=== PATIENT | male | born 1955 | race Caucasian/White ===

== ENCOUNTER 2021-12-14 14:27 | Emergency (ER) | payer OTHER ==
[2021-12-14 15:29] LABS: HEMOGLOBIN 15.9 gm/dl (14.0-17.5); RED BLOOD COUNT 4.75 M/UL (4.20-5.50); WHITE BLOOD COUNT 13.3 K/UL (4.5-11.0)
[2021-12-14 15:54] LABS: BUN/CREATININE RATIO 21 (0-10)
[2021-12-15 10:07] LABS: HEMOGLOBIN 16.4 gm/dl (14.0-17.5); RED BLOOD COUNT 4.92 M/UL (4.20-5.50); WHITE BLOOD COUNT 12.7 K/UL (4.5-11.0)
[2021-12-15 10:27] LABS: BUN/CREATININE RATIO 19 (0-10)
[2021-12-15] MEDS ORDERED: GABAPENTIN300 MG PO (19:34)
[2021-12-15] MEDS ORDERED: CANDESARTAN CIL32 MG PO (19:35)
[2021-12-15] MEDS ORDERED: CELECOXIB200 MG PO (19:35)
[2021-12-15] MEDS ORDERED: LANSOPRAZOLE30 MG PO (19:35)
[2021-12-15] MEDS ORDERED: ESCITALOPRAM OX20 MG PO (19:36)
[2021-12-15] MEDS ORDERED: ATORVASTATIN CA20 MG PO (19:36)
[2021-12-15] MEDS ORDERED: FLUTICASONE-SA1 EAC5 INH (19:37)
[2021-12-15] MEDS ORDERED: ALPRAZOLAM1 MG PO (19:37)
[2021-12-15] MEDS ORDERED: METOPROLOL SUC100 MG PO (19:38)
[2021-12-15] MEDS ORDERED: AMLODIPINE BESYL5 MG PO (19:39)
[2021-12-15] MEDS ORDERED: HYGROTON TAB 2525 MG PO (19:59)
[2021-12-15] MEDS ORDERED: IMODIUM CAP 2 MG2 MG PO (20:34)
[2021-12-16 06:04] LABS: HEMOGLOBIN 15.6 gm/dl (14.0-17.5); RED BLOOD COUNT 4.71 M/UL (4.20-5.50); WHITE BLOOD COUNT 12.2 K/UL (4.5-11.0)
[2021-12-16 06:24] LABS: BUN/CREATININE RATIO 15 (0-10)
[2021-12-17 04:42] LABS: HEMOGLOBIN 15.2 gm/dl (14.0-17.5); RED BLOOD COUNT 4.64 M/UL (4.20-5.50); WHITE BLOOD COUNT 12.2 K/UL (4.5-11.0)
[2021-12-17 05:04] LABS: BUN/CREATININE RATIO 18 (0-10)
== END 2021-12-17 15:57 | disposition other institution (70) ==
LOC: ER1 14:27
PROVIDERS: Physician Assistant
DX: I65.23 Occlusion and stenosis of bilateral carotid arteries (principal); R26.2 Difficulty in walking, not elsewhere classified; I63.9 Cerebral infarction, unspecified; F17.200 Nicotine dependence, unspecified, uncomplicated; I25.10 Atherosclerotic heart disease of native coronary artery without angina pectoris; R51.9 Headache, unspecified; R29.700 NIHSS score 0; Z20.822 Contact with and (suspected) exposure to COVID-19
CPT/HCPCS: ECHO; 70496; 70498; 80048; 80053; 82550; 82553; 83874; 84484; 85025; 93005; 93306; 97161; 99284; Q9967; U0002